=== PATIENT | female | born 1940 | race Caucasian/White ===

== ENCOUNTER 2016-06-21 16:52 | Emergency (ER) | payer MEDICARE, OTHER ==
--- NOTE | 2016-06-21 17:33 | ER Document Report ---
HPI - HPI Pain Level: 2 Context: 76yo female c/o right upper arm pain, pt fell off couch onto right arm. denies head injury, LOC Associated Symptoms: None Exacerbated by: Movement Relieved by: Denies Similar symptoms previously: No Recently seen / treated by doctor: No - ROS Systems Reviewed and Negative: Yes All other systems reviewed and negative - REPRODUCTIVE Reproductive: DENIES: : - DERM Skin Color: Normal Past Medical History - General Information source: Patient - Social History Smoking Status: Never Smoker Frequency of alcohol use: None Drug Abuse: None Lives with: Family Family History: Reviewed & Not Pertinent Patient has suicidal ideation: No Patient has homicidal ideation: No - Past Medical History Cardiac Medical History: Reports: Hx Hypertension Endocrine Medical History: Reports: Hx Diabetes Mellitus Type 2 Renal/ Medical History: Denies: Hx Peritoneal Dialysis GI Medical History: Reports: Hx Gastroesophageal Reflux Disease Past Surgical History: Reports: Hx Hysterectomy - Immunizations Hx Diphtheria, Pertussis, Tetanus Vaccination: Yes Hx Pneumococcal Vaccination: 02/15/09 Vertical Provider Document - INFECTION CONTROL TRAVEL OUTSIDE OF THE [place] IN LAST 30 DAYS: No - HEENT HEENT: Atraumatic, PERRLA - NECK Neck: Normal Inspection, Supple - RESPIRATORY Respiratory: Breath Sounds Normal, No Respiratory Distress O2 Sat by Pulse Oximetry: 97 - CARDIOVASCULAR Cardiovascular: Regular Rate, Regular Rhythm - MUSCULOSKELETAL/EXTREMETIES Musculoskeletal/Extremeties: Tender - right humerus. no deformity. no edema. no echymosis - NEURO Level of Consciousness: Awake, Alert, Appropriate - DERM Integumentary: Warm, Dry Course - Re-evaluation Re-evalutation: 06/21/16 18:25 xray negative. results reviewed with patient and family pt stable for discharge and follow up with primary care. pt agreeable with plan - Vital Signs Vital signs: Temp Pulse Resp BP Pulse Ox 98.0 F 78 16 162/74 H 97 06/21/16 16:57 06/21/16 16:57 06/21/16 16:57 06/21/16 16:57 06/21/16 16:57 Discharge - Discharge Clinical Impression: Contusion of right arm Qualifiers: Encounter type: initial encounter Qualified Code(s): S40.021A - Contusion of right upper arm, initial encounter Condition: Stable Disposition: HOME, SELF-CARE Instructions: Contusion ([facility]), Ice & Elevation ([facility]), Acetaminophen Additional Instructions: Your xray is negative for fracture ice and elevate follow up with your primary care if pain persists Forms: Elevated Blood Pressure
[2016-06-21 19:06] VITALS: BP 151/77
== END 2016-06-21 19:07 | disposition home or self-care (01) ==
LOC: ER 16:52
DX: S40.021A Contusion of right upper arm, initial encounter (principal); M79.601 Pain in right arm; W08.XXXA Fall from other furniture, initial encounter; Y93.89 Activity, other specified; Y92.009 Unspecified place in unspecified non-institutional (private) residence as the place of occurrence of the external cause; I10 Essential (primary) hypertension; E11.9 Type 2 diabetes mellitus without complications
CPT/HCPCS: 99283

== ENCOUNTER 2017-12-12 14:31 | Emergency (ER) | payer MEDICARE, OTHER ==
--- NOTE | 2017-12-12 15:03 | ER Document Report ---
ED General - General Chief Complaint: Urinary Problem Stated Complaint: EYE DISCOLORATION Time Seen by Provider: 12/12/17 14:46 TRAVEL OUTSIDE OF THE [place] IN LAST 30 DAYS: No - HPI Notes: Patient is a 77-year-old female that presents to the emergency department for chief complaint of jaundice. Patient states for the last 2 weeks she has noticed her urine looked yellow. Today her daughter noticed that her skin and eyes appeared yellow as well. Patient states she has been feeling normal. She denies any fatigue, confusion, nausea, vomiting or abdominal pain. She states she has had intermittent episodes of diarrhea but has not had any for the last week. She denies history of liver disease. She denies any alcohol use. She denies any recent illness. She is not having any dysuria, hematuria, shortness of breath, chest pain, headache, or congestion. Past Medical History: Hypertension, hyperlipidemia, diabetes Past Surgical History: Negative Social History: Denies drugs alcohol and tobacco Family History: Reviewed and noncontributory for presenting illness Allergies: Reviewed, see documented allergy list. REVIEW OF SYSTEMS: CONSTITUTIONAL : No fever No chills No diaphoresis No recent illness EENT: No vision changes No congestion No sore throat CARDIOVASCULAR: No chest pain No palpitations RESPIRATORY: No shortness of breath No cough No difficulty breathing GASTROINTESTINAL: No abdominal pain No nausea No vomiting No diarrhea GENITOURINARY: No dysuria No hematuria No difficulty urinating MUSCULOSKELETAL: No back pain No leg pain No arm pain SKIN: No rashes No lesions Jaundice LYMPHATIC: No swollen, enlarged glands. NEUROLOGICAL: No lightheadedness No headache No weakness No paresthesias PSYCHIATRIC: No anxiety No depression PHYSICAL EXAMINATION: Vital signs reviewed, nursing noted reviewed. GENERAL: Well-appearing, well-nourished and in no acute distress. HEAD: Atraumatic, normocephalic. EYES: Eyes appear normal, extraocular movements intact, sclera icteric. ENT: nares patent, oropharynx clear without exudates. Moist mucous membranes. NECK: Normal range of motion, supple without lymphadenopathy LUNGS: Breath sounds clear to auscultation bilaterally and equal. No wheezes rales or rhonchi. HEART: Regular rate and rhythm without murmurs ABDOMEN: Soft, nontender, normoactive bowel sounds. No rebound, guarding, or rigidity. No masses appreciated. EXTREMITIES: Nontender, good range of motion, no pitting or edema. NEUROLOGICAL: No focal neurological deficits. Moves all extremities spontaneously Motor and sensory grossly intact on exam. PSYCH: Normal mood, normal affect. SKIN: Warm, Dry, normal turgor. Jaundice - Related Data Allergies/Adverse Reactions: No Known Allergies Allergy (Verified 06/21/16 16:56) Past Medical History - Social History Smoking Status: Never Smoker Family History: Reviewed & Not Pertinent - Past Medical History Cardiac Medical History: Reports: Hx Hypertension Endocrine Medical History: Reports: Hx Diabetes Mellitus Type 2 Renal/ Medical History: Denies: Hx Peritoneal Dialysis GI Medical History: Reports: Hx Gastroesophageal Reflux Disease Past Surgical History: Reports: Hx Hysterectomy - Immunizations Hx Diphtheria, Pertussis, Tetanus Vaccination: Yes Hx Pneumococcal Vaccination: 02/15/09 Review of Systems - Review of Systems Notes: Dictated Physical Exam - Vital signs Vitals: Temp Pulse Resp BP Pulse Ox 97.9 F 67 16 134/66 H 96 12/12/17 14:39 12/12/17 14:39 12/12/17 14:39 12/12/17 14:39 12/12/17 14:39 - Notes Notes: Dictated Course - Re-evaluation Re-evalutation: 12/12/17 15:03 Vitals reviewed. Nursing notes reviewed. Patient is currently asymptomatic but appears jaundiced. 12/12/17 17:44 Patient's lab work shows significant elevations of her bilirubin and of her failure. This is new for this patient. CT scan shows ductal dilation as well as ill-defined pancreatic mass. Patient is requiring GI evaluation and ERCP which is not currently available at this facility. She will be transferred to [facility] for further GI evaluation and workup of her acute liver failure. Patient is in agreement with this plan. Her family including son are in agreement. Patient is stable for transport to [facility]. She is currently asymptomatic. Case discussed with Dr. Robert Cui at [facility] who accepted admission. Laboratory 12/12/17 12/12/17 12/12/17 15:14 15:14 15:14 WBC 6.9 RBC 4.09 Hgb 12.1 Hct 35.7 L MCV 87 MCH 29.6 MCHC 33.9 RDW 14.6 H Plt Count 283 Seg Neutrophils % 63.4 Lymphocytes % 26.3 Monocytes % 6.7 Eosinophils % 2.5 Basophils % 1.1 Absolute Neutrophils 4.4 Absolute Lymphocytes 1.8 Absolute Monocytes 0.5 Absolute Eosinophils 0.2 Absolute Basophils 0.1 PT 16.9 H INR 1.31 Sodium 138.0 Potassium 3.8 Chloride 98 Carbon Dioxide 25 Anion Gap 15 BUN 10 Creatinine 0.83 Est GFR ( Amer) > 60 Est GFR (Non-Af Amer) > 60 Glucose 323 H Calcium 9.4 Total Bilirubin 11.2 H Direct Bilirubin 9.6 H Neonat Total Bilirubin Not Reportable Neonat Direct Bilirubin Not Reportable Neonat Indirect Bili Not Reportable AST 283 H ALT 293 H Alkaline Phosphatase 945 H Total Protein 6.8 Albumin 3.8 Lipase 16.8 L Urine Color Urine Appearance Urine pH Ur Specific [place] Urine Protein Urine Glucose (UA) Urine Ketones Urine Blood Urine Nitrite Urine Bilirubin Urine Urobilinogen Ur Leukocyte Esterase Urine WBC (Auto) Urine RBC (Auto) Urine Bacteria (Auto) Squamous Epi Cells Auto Urine Mucus (Auto) Urine Ascorbic Acid 12/12/17 16:33 WBC RBC Hgb Hct MCV MCH MCHC RDW Plt Count Seg Neutrophils % Lymphocytes % Monocytes % Eosinophils % Basophils % Absolute Neutrophils Absolute Lymphocytes Absolute Monocytes Absolute Eosinophils Absolute Basophils PT INR Sodium Potassium Chloride Carbon Dioxide Anion Gap BUN Creatinine Est GFR ( Amer) Est GFR (Non-Af Amer) Glucose Calcium Total Bilirubin Direct Bilirubin Neonat Total Bilirubin Neonat Direct Bilirubin Neonat Indirect Bili AST ALT Alkaline Phosphatase Total Protein Albumin Lipase Urine Color ESTEFANIA Urine Appearance SLIGHTLY-CLOUDY Urine pH 5.0 Ur Specific [place] 1.022 Urine Protein 30 H Urine Glucose (UA) >=500 H Urine Ketones NEGATIVE Urine Blood NEGATIVE Urine Nitrite NEGATIVE Urine Bilirubin MODERATE H Urine Urobilinogen 4.0 H Ur Leukocyte Esterase NEGATIVE Urine WBC (Auto) 8 Urine RBC (Auto) 1 Urine Bacteria (Auto) 3+ Squamous Epi Cells Auto 6 Urine Mucus (Auto) MANY Urine Ascorbic Acid NEGATIVE Abdomen/Pelvis CT 12/12/17 15:04 IMPRESSION: 1. Mild intra and extrahepatic biliary ductal dilation. Distended gallbladder. Dilated main pancreatic duct with atrophy of the pancreatic parenchyma at the body and tail. Ill-defined heterogeneous soft tissue density at the pancreatic head raising concern for pancreatic mass. ERCP recommended for further evaluation. 2. Colonic diverticulosis. 3. A 4 mm nodule at the right middle lobe. Followup CT as per patient's risk factors. 12/12/17 17:45 - Vital Signs Vital signs: Temp Pulse Resp BP Pulse Ox 97.9 F 67 16 134/66 H 96 12/12/17 14:39 12/12/17 14:39 12/12/17 14:39 12/12/17 14:39 12/12/17 14:39 - Laboratory Result Diagrams: 12/12/17 15:14 12/12/17 15:14 Laboratory results interpreted by me: 12/12/17 12/12/17 12/12/17 15:14 15:14 15:14 Hct 35.7 L RDW 14.6 H PT 16.9 H Glucose 323 H Total Bilirubin 11.2 H Direct Bilirubin 9.6 H AST 283 H ALT 293 H Alkaline Phosphatase 945 H Lipase 16.8 L Urine Protein Urine Glucose (UA) Urine Bilirubin Urine Urobilinogen 12/12/17 16:33 Hct RDW PT Glucose Total Bilirubin Direct Bilirubin AST ALT Alkaline Phosphatase Lipase Urine Protein 30 H Urine Glucose (UA) >=500 H Urine Bilirubin MODERATE H Urine Urobilinogen 4.0 H Discharge - Discharge Clinical Impression: Jaundice, Pancreatic mass, Total bilirubin, elevated Liver failure Qualifiers: Liver failure chronicity: acute Hepatic coma status: without hepatic coma Qualified Code(s): K72.00 - Acute and subacute hepatic failure without coma Condition: Stable Disposition: [facility] Referrals: SIOBHAN PAEZ MD [Primary Care Provider] - Follow up as needed
[2017-12-12 15:28] LABS: ABSOLUTE BASOPHILS # (AUTO) 0.1 10^3/uL (0.0-0.2); ABSOLUTE EOSINOPHILS # (AUTO) 0.2 10^3/uL (0.0-0.6); ABSOLUTE LYMPHOCYTES (AUTO) 1.8 10^3/uL (0.5-4.7); ABSOLUTE MONOCYTES (AUTO) 0.5 10^3/uL (0.1-1.4); ABSOLUTE NEUT (AUTO) 4.4 10^3/uL (1.7-8.2); BASOPHILS % (AUTO) 1.1 % (0-2); EOSINOPHILS % (AUTO) 2.5 % (0-6); HEMATOCRIT 35.7 % (36.0-47.0); HEMOGLOBIN 12.1 g/dL (12.0-15.5); LYMPHOCYTES % (AUTO) 26.3 % (13-45); MEAN CORPUSCULAR HEMOGLOBIN 29.6 pg (27.0-33.4); MEAN CORPUSCULAR HGB CONC 33.9 g/dL (32.0-36.0); MEAN CORPUSCULAR VOLUME 87 fl (80-97); MONOCYTES % (AUTO) 6.7 % (3-13); PLATELET COUNT 283 10^3/uL (150-450); RED BLOOD COUNT 4.09 10^6/uL (3.72-5.28); RED CELL DISTRIBUTION WIDTH 14.6 % (11.5-14.0); SEGMENTED NEUTROPHILS % (AUTO) 63.4 % (42-78); TOTAL CELLS COUNTED % (AUTO) 100 %; WHITE BLOOD COUNT 6.9 10^3/uL (4.0-10.5)
[2017-12-12 15:32] LABS: INTERNATIONAL RATION (INR) 1.31; PROTHROMBIN TIME 16.9 SEC (11.4-15.4)
[2017-12-12 15:48] LABS: ALANINE AMINOTRANSFERASE 293 U/L (9-52); ALBUMIN 3.8 g/dL (3.5-5.0); ALKALINE PHOSPHATASE 945 U/L (38-126); ANION GAP 15 (5-19); ASPARTATE AMINO TRANSFERASE 283 U/L (14-36); BILIRUBIN,DIRECT 9.6 mg/dL (0.0-0.4); BILIRUBIN,TOTAL 11.2 mg/dL (0.2-1.3); BLOOD UREA NITROGEN 10 mg/dL (7-20); CALCIUM 9.4 mg/dL (8.4-10.2); CARBON DIOXIDE 25 mmol/L (22-30); CHLORIDE 98 mmol/L (98-107); GLUCOSE 323 mg/dL (75-110); LIPASE 16.8 U/L (23-300); POTASSIUM 3.8 mmol/L (3.6-5.0); TOTAL PROTEIN 6.8 g/dL (6.3-8.2)
[2017-12-12 17:07] LABS: APPEARANCE,URINE SLIGHTLY-CLOUDY; BILIRUBIN,URINE MODERATE (NEGATIVE); COLOR,URINE AMBER; GLUCOSE, URINE >=500 mg/dL (NEGATIVE); KETONES,URINE NEGATIVE (NEGATIVE); LEUKOCYTE ESTERASE,URINE NEGATIVE (NEGATIVE); NITRITE,URINE NEGATIVE (NEGATIVE); PROTEIN,URINE 30 mg/dL (NEGATIVE); URINE SPECIFIC GRAVITY 1.022
--- NOTE | 2017-12-12 17:13 | RADIOLOGY REPORT (SQ) ---
EXAM DESCRIPTION: CT ABD/PELVIS WITH IV ONLY COMPLETED DATE/TIME: 12/12/2017 4:52 pm REASON FOR STUDY: jaundice COMPARISON: None. TECHNIQUE: CT scan of the abdomen and pelvis performed using helical scanning technique with dynamic intravenous contrast injection. No oral contrast. Images reviewed with lung, soft tissue, and bone windows. Reconstructed coronal and sagittal MPR images reviewed. Delayed images for evaluation of the urinary system also acquired. All images stored on PACS. All CT scanners at this facility use dose modulation, iterative reconstruction, and/or weight based d osing when appropriate to reduce radiation dose to as low as reasonably achievable (ALARA). [facility]: Dose Right [facility]: CareDose [facility]: Dose Right [facility]: Teradose 4D [facility]: Findline CONTRAST TYPE AND DOSE: contrast/concentration: Isovue 350.00 mg/ml; Total Contrast Delivered: 65.0 ml; Total Saline Delivered: 50.0 ml RENAL FUNCTION: Creatinine 0.83 RADIATION DOSE: CT Rad equipment meets quality standard of care and radiation dose reduction techniq ues were employed. CTDIvol: 5.7 - 7.7 mGy. DLP: 720 mGy-cm.. LIMITATIONS: None. FINDINGS: LOWER CHEST: No consolidation or pleural effusion. There is a 4 mm nodule at the right mi ddle lobe. LIVER: Normal size. No masses. There is mild intra and extrahepatic biliary ductal dilation. SPLEEN: Normal size. No focal lesions. PANCREAS: The main pancreatic duct is dilated to 9 mm. There is atrophy of the pancreatic parenchyma at the body and tail of the pancreas. There is ill-defined soft tissue density at the pancreatic he ad measuring approximately 2.3 x 2.4 cm. GALLBLADDER: Distended. ADRENAL GLANDS: No significant masses or asymmetry. RIGHT KIDNEY AND URETER: No solid masses. No significant calcifications. No hydronephrosis or hyd roureter. LEFT KIDNEY AND URETER: No solid masses. No significant calcifications. No hydronephrosis or hydr oureter. AORTA AND VESSELS: No abdominal aortic aneurysm. RETROPERITONEUM: No retroperitoneal adenopathy, hemorrhage or masses. BOWEL AND PERITONEAL CAVITY: No dilated bowel loops or inflammatory changes. No free fluid or free ai r. There is colonic diverticulosis with no CT evidence for acute diverticulitis. APPENDIX: Normal. PELVIS: The urinary bladder is decompressed. The uterus is surgically absent. There is no free flui d ABDOMINAL WALL: There are small fat containing bilateral inguinal hernias. BONES: Multilevel degenerative changes within the spine. IMPRESSION: 1. Mild intra and extrahepatic biliary ductal dilation. Distended gallbladder. Dilated main pancreatic duct with atrophy of the pancreatic parenchyma at the body and tail. Ill-defined he terogeneous soft tissue density at the pancreatic head raising concern for pancreatic mass. ERCP rec ommended for further evaluation. 2. Colonic diverticulosis. 3. A 4 mm nodule at the right middle lobe. Followup CT as per patient's risk factors. COMMENT: FLEISCHNER CRITERIA FOR FOLLOW-UP OF PULMONARY NODULES Incidentally detected new nodules in persons 35 or older. HIGH RISK: History of smoking or other known risk factors. <6mm single solid nodule: LOW RISK: no routine followup. HIGH RISK: optional CT 12 mo. TECHNICAL DOCUMENTATION: JOB ID: [id number] Quality ID # [id number]: Final reports with documentation of one or more dose reduction techniques (e.g., Au tomated exposure control, adjustment of the mA and/or kV according to patient size, use of iterative reconstruction technique) 2010 [employer]- All Rights Reserved Reading location - IP/workstation name: [email or web address]
[2017-12-12 23:18] VITALS: BP 167/88
[2017-12-14 05:39] LABS: HEPATITIS A AB IGM Negative (Negative); HEPATITIS B CORE AB IGM Negative (Negative); HEPATITS B SURFACE ANTIGEN Negative (Negative)
[2017-12-14 07:14] LABS: HEPATITIS C VIRUS ANTIBODY <0.1 s/co ratio (0.0-0.9)
== END 2017-12-12 23:20 | disposition short-term general hospital (02) ==
LOC: ER 14:31
DX: K72.00 Acute and subacute hepatic failure without coma (principal); K86.9 Disease of pancreas, unspecified; K82.8 Other specified diseases of gallbladder; K57.30 Diverticulosis of large intestine without perforation or abscess without bleeding; I10 Essential (primary) hypertension; E11.9 Type 2 diabetes mellitus without complications
CPT/HCPCS: 36415; 74177; 80053; 80074; 81001; 83690; 85025; 85610; 99285

== ENCOUNTER → 2018-01-09 | Outpatient (CLI) | payer MEDICARE, OTHER ==
--- NOTE | 2018-01-10 08:27 | RADIOLOGY REPORT (SQ) ---
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 TECHNIQUE: Blood glucose level was verified. Above dose of FDG was injected intravenously. 2-D seg mented attenuation correction images were obtained from the base of the skull to the midthighs. Nonc ontrast CT images were obtained for attenuation correction and fusion with emission images. CT image s were performed without oral or intravenous contrast and are not sensitive for parenchymal lesions. A series of overlapping emission PET images were obtained. Images reviewed and manipulated at [facility] work station by the radiologist. Images stored on PACS. LIMITATIONS: None. FINDINGS: HEAD AND NECK: No areas of abnormal metabolic activity in the soft tissues of the head and neck. CHEST: No areas of abnormal metabolic activity in the chest. ABDOMEN AND PELVIS: A 3 x 2.3 cm mass is present at the pancreatic head just ventral to a distal comm on bile duct stent on axial image 115, with SUV of 9.5. The remainder the pancreas is markedly atrop hic with diffuse dilatation of the pancreatic duct. No adjacent retroperitoneal adenopathy. PROXIMAL LOWER EXTREMITIES: No areas of abnormal metabolic activity in the soft tissues of the lower extremities. BONES: No abnormal metabolic activity in the visualized skeleton. ADDITIONAL CT FINDINGS: Common bile duct stent is patent, with air in left-sided intrahepatic bile du cts. Moderate coronary artery calcification. Colonic diverticulosis without CT signs of acute diver ticulitis. Post hysterectomy. OTHER: Liver background SUV 3.0. Blood pool background activity 1.9 SUV. 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 No regional adenopathy or distant metastatic disease TECHNICAL DOCUMENTATION: JOB ID: [id number]- All Rights Reserved Reading location - IP/workstation name: [email or web address]
== END ==
LOC: RAD 01-02 18:43
PROVIDERS: ATTEND Internal Medicine Medical Oncology
DX: C25.9 Malignant neoplasm of pancreas, unspecified (principal)
CPT/HCPCS: 78815; A9552